=== PATIENT | female | born 1995 | race Caucasian/White ===

== ENCOUNTER → 2016-06-22 | Outpatient (CLI) | payer OTHER ==
[2016-06-22 14:36] LABS: BASO % 0.2 % (0.0-1.0); EOS # 0.1 K/mm3 (0.0-0.50); EOS % 0.6 % (0.0-3.0); LYMPH # 1.8 K/mm3 (1.5-6.5); LYMPH % 19.4 % (24.0-44.0); MEAN CORPUSCULAR HGB CONC 33.1 g/dl (32.0-36.5); MEAN CORPUSCULAR VOLUME 90.7 fl (80.0-96.0); MONO # 0.3 K/mm3 (0.0-0.8); MONO % 3.3 % (0.0-5.0); NEUTROPHILS # 7.2 K/mm3 (1.8-7.7); NEUTROPHILS % 75.5 % (36.0-66.0); RED CELL DISTRIBUTION WIDTH 13.6 % (11.5-14.5); WHITE BLOOD COUNT 9.5 K/mm3 (4.0-10.0)
== END ==
LOC: M LAB 13:23
PROVIDERS: ATTEND Obstetrics & Gynecology
DX: Z34.81 Encounter for supervision of other normal pregnancy, first trimester (principal)

== ENCOUNTER → 2016-07-01 | Outpatient (CLI) | payer OTHER ==
--- NOTE | 2016-07-02 05:19 | REP ---
Clinical: Anatomical evaluation. Comparison: None . Findings: Examination demonstrates a single live intrauterine in cephalic presentation. motion is identified by technologist. Placenta is noted anteriorly and grade zero without evidence for placenta previa or abruption. Amniotic fluid volume is normal. Cervix measures L 4.0 cm in length and appears closed. No evidence for nuchal cord. Gestational age by LMP 19 weeks 1 day with CATHI 11/24/2016 . Gestational age by current measurements 19 weeks 5 days with CATHI 11/20/2016 . FHR equals 150 beats per minute. BPD 4.6 cm 19 weeks 6 days HC 17.1 cm 19 weeks 5 days AC 15.2 cm 20 weeks 3 days FL 3.1 cm 19 weeks 4 days HL 3.1 cm 20 weeks 2 days HC/AC ratio 1.12 Estimated weight 325 grams ( 59th percentile). Anatomical assessment demonstrates normal structures including cranium, choroid plexus, cavum, cerebellum/posterior fossa, facial features, lungs, four-chamber heart/ventricular outflow tracts, diaphragm, stomach, cord insertion/three-vessel cord, kidneys/bladder, spine, and extremities. Impression: Single live intrauterine in cephalic presentation demonstrating appropriate interval growth. Anatomical assessment is complete and normal. Signed by Johnny Rocha MD 07/02/2016 05:11 A
== END ==
LOC: M LRY 13:55
PROVIDERS: ATTEND Obstetrics & Gynecology
DX: Z36 Encounter for antenatal screening of mother (principal); Z3A.19 19 weeks gestation of pregnancy

== ENCOUNTER → 2016-08-17 | Outpatient (CLI) | payer OTHER ==
[2016-08-17 18:33] LABS: BASO % 0.2 % (0.0-1.0); EOS # 0.1 K/mm3 (0.0-0.50); EOS % 0.9 % (0.0-3.0); LARGE UNSTAINED CELL # 0.1 K/mm3 (0.0-0.4); LARGE UNSTAINED CELL % 1.5 % (0.0-4.0); LYMPH # 1.6 K/mm3 (1.5-6.5); LYMPH % 16.5 % (24.0-44.0); MEAN CORPUSCULAR HGB CONC 32.9 g/dl (32.0-36.5); MEAN CORPUSCULAR VOLUME 91.4 fl (80.0-96.0); MONO # 0.4 K/mm3 (0.0-0.8); MONO % 4.2 % (0.0-5.0); NEUTROPHILS # 7.2 K/mm3 (1.8-7.7); NEUTROPHILS % 76.8 % (36.0-66.0); PLATELET COUNT, AUTOMATED 277 k/mm3 (150-450); RED CELL DISTRIBUTION WIDTH 13.2 % (11.5-14.5); WHITE BLOOD COUNT 9.4 K/mm3 (4.0-10.0)
== END ==
LOC: M SMT 14:00
PROVIDERS: ATTEND Advanced Practice Midwife
DX: Z34.83 Encounter for supervision of other normal pregnancy, third trimester (principal)

== ENCOUNTER → 2016-10-29 | Outpatient (REF) | payer OTHER ==
[~2016-10-29] MED LIST: ACET50TA PO; IBUP-1114 PO; PRENTAB9 PO
== END ==
LOC: M LAB REF 16:51
PROVIDERS: ATTEND Advanced Practice Midwife
DX: Z34.83 Encounter for supervision of other normal pregnancy, third trimester (principal)

== ENCOUNTER 2016-11-10 03:43 | Emergency (ER) | payer OTHER ==
[~2016-11-10] VITALS: Ht 177.8 cm; Wt 97.7 kg
[2016-11-10] MEDS ORDERED: NS 1,000 ML IV ONE (04:30)
[2016-11-10 04:42] LABS: BASO % 0.2 % (0.0-1.0); EOS # 0.1 K/mm3 (0.0-0.50); EOS % 1.5 % (0.0-3.0); LARGE UNSTAINED CELL # 0.1 K/mm3 (0.0-0.4); LARGE UNSTAINED CELL % 1.3 % (0.0-4.0); LYMPH # 2.1 K/mm3 (1.5-6.5); LYMPH % 22.6 % (24.0-44.0); MEAN CORPUSCULAR HEMOGLOBIN 26.7 pg (27.0-33.0); MEAN CORPUSCULAR HGB CONC 33.2 g/dl (32.0-36.5); MEAN CORPUSCULAR VOLUME 80.6 fl (80.0-96.0); MONO # 0.5 K/mm3 (0.0-0.8); MONO % 5.8 % (0.0-5.0); NEUTROPHILS # 6.1 K/mm3 (1.8-7.7); NEUTROPHILS % 68.6 % (36.0-66.0); PLATELET COUNT, AUTOMATED 275 k/mm3 (150-450); RED CELL DISTRIBUTION WIDTH 14.5 % (11.5-14.5); WHITE BLOOD COUNT 8.8 K/mm3 (4.0-10.0)
[2016-11-10 04:55] LABS: ANION GAP 11 MEQ/L (8-16); BLOOD UREA NITROGEN 8 MG/DL (7-18); CALCIUM LEVEL 8.6 MG/DL (8.5-10.1); CARBON DIOXIDE LEVEL 20 MEQ/L (21-32); CHLORIDE LEVEL 108 MEQ/L (98-107); CREATININE FOR GFR 0.57 MG/DL (0.55-1.02); GLOMERULAR FILTRATION RATE > 60.0 (>60); GLUCOSE, FASTING 116 MG/DL (70-105); MAGNESIUM LEVEL 1.7 MG/DL (1.8-2.4); POTASSIUM SERUM 3.6 MEQ/L (3.5-5.1); SODIUM LEVEL 139 MEQ/L (136-145)
[2016-11-10] MEDS ORDERED: MAGNESIUM OXIDE 400 MG TAB (MAG-OX) PO ONE (05:15)
[2016-11-10] MEDS ORDERED: MAG SULF 1GM/100ML (MAG RUN) 1 GM in APPROPRIATE DILUENT 1 EA IV ONE (05:15)
[2016-11-10 06:31] VITALS: BP 118/64
--- NOTE | 2016-11-11 09:26 | ECGEPIP ---
Stationary ECG Study 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
== END 2016-11-10 06:48 | disposition home or self-care (01) ==
LOC: M ED 03:43
DX: R00.2 Palpitations (principal); E83.42 Hypomagnesemia
CPT/HCPCS: 80048; 81001; 83735; 85025; 87086; 93005; 96361; 96365; 96366; 99284; J3475

== ENCOUNTER 2016-11-29 03:04 | Inpatient (IN) | payer OTHER ==
[~2016-11-29] VITALS: Ht 177.8 cm; Wt 103.0 kg
[2016-11-29] VITALS (7 sets, daily range): BP systolic 130–140; BP diastolic 69–77
[2016-11-29 03:57] LABS: MEAN CORPUSCULAR HEMOGLOBIN 25.2 pg (27.0-33.0); MEAN CORPUSCULAR HGB CONC 31.4 g/dl (32.0-36.5); MEAN CORPUSCULAR VOLUME 80.3 fl (80.0-96.0); RED CELL DISTRIBUTION WIDTH 15.9 % (11.5-14.5); WHITE BLOOD COUNT 9.8 K/mm3 (4.0-10.0)
[2016-11-29] MEDS ORDERED: PROMETHAZINE INJ 25 MG/ML VIAL (J2550) IV ONE (05:30)
[2016-11-29] MEDS ORDERED: BUTORPHANOL 2 MG/ML INJ (J0595) IV ONE (05:30)
[2016-11-29] MEDS ORDERED: OXYTOCIN 30 UNITS IN 0.9% NaCl 500ML IV BAG (J2590) As Ordered ONE (05:50)
--- NOTE | 2016-11-29 06:56 | HPE ---
DATE OF ADMISSION: 11/29/2016 REASON FOR ADMISSION: Labor. HISTORY OF PRESENT ILLNESS: This patient is a 21-year-old 2 para 1 who presents at 40 weeks 5 days estimated gestational age by last menstrual period confirmed by first trimester ultrasound with complaints of contractions. She reports contractions throughout the day and night that have increased in frequency and intensity. She reports active movement. Denies any vaginal bleeding or leakage of fluid. course has been unremarkable. PAST MEDICAL HISTORY: None. PAST SURGICAL HISTORY: None. PAST OBSTETRICAL HISTORY: She is 2 para 1. She has had one true vaginal delivery proven 6 pounds 5 ounces. MEDICATIONS: - vitamins She has no known drug allergies. SOCIAL HISTORY: She denies any alcohol, tobacco or drug use during her . PHYSICAL EXAMINATION: Vital signs stable. She is afebrile. General appearance: Well appearing, no acute distress. She has category 1 rate tracing with contractions on tocometer approximately every 2-3 minutes. Lungs: Clear to auscultation bilaterally. Cardiovascular: Heart regular rate and rhythm. Abdomen: Gravid. Estimated weight 3900 grams. Cervical exam: She was 5 cm dilated, 90% effaced, -2 station. LABS: labs: Blood type is A positive. Antibody screen negative. Rubella immune. RPR nonreactive. Hepatitis surface antigen negative. HIV negative. Chlamydia and gonorrhea screen negative. She had a normal 1 hour Glucola of 100 and she is Group B Streptococcus (GBS) negative. ASSESSMENT: 1. This patient is a 21-year-old 2, para 1 at 40 weeks 5 days estimated gestational age in active labor. 2. Reassuring status. PLAN: Admit to labor and delivery. CBC, RPR, type and screen. Anticipate spontaneous vaginal delivery. MTDD
[2016-11-29 07:41] LABS: CORD GAS ABE A -5.9; CORD GAS ABE V -5.9; CORD GAS HCO3 A 19.2 MEQ/L; CORD GAS HCO3 V 18.7 MEQ/L; CORD GAS O2 SAT A 56.3 %; CORD GAS O2 SAT V 66.4 %; CORD GAS PCO2 V 34.9 mmHg; CORD GAS PH A 7.333 UNITS; CORD GAS PH V 7.346 UNITS; CORD GAS PO2 V 28.7 mmHg; CORD GAS SBC A 18.7 MEQ/L; CORD GAS SBC V 18.9 MEQ/L; CORD GAS TCO2 A 20.3 MEQ/L; CORD GAS TCO2 V 19.7 MEQ/L
[2016-11-29] MEDS ORDERED: OXYTOCIN DRIP 30 UNITS in APPROPRIATE DILUENT 1 EA IV SCH (07:44)
[2016-11-29] MEDS ORDERED: ACETAMINOPHEN 500 MG TAB PO PRN (07:45)
[2016-11-29] MEDS ORDERED: DOCUSATE SODIUM 100 MG CAP PO PRN (07:45)
[2016-11-29] MEDS ORDERED: DIBUCAINE 1% OINTMENT 30GM TOP PRN (07:45)
[2016-11-29] MEDS ORDERED: MEASLES,MUMPS,RUBELLA VACCINE INJ (MMR-II) (90707) SC SCH (07:45)
[2016-11-29] MEDS ORDERED: METHYLERGONOVINE MALEATE 0.2 MG TAB PO PRN (07:45)
[2016-11-29] MEDS ORDERED: ANUSOL HC CREAM 30GM TOP PRN (07:45)
[2016-11-29] MEDS ORDERED: MOM 30ML SUSPENSION UDC PO PRN (07:45)
[2016-11-29] MEDS ORDERED: RHOGAM 300 MCG (1500 IU) INJ (J2790) IM SCH (07:45)
[2016-11-29] MEDS ORDERED: IBUPROFEN 800 MG TAB PO PRN (07:45)
--- NOTE | 2016-11-29 07:49 | DN ---
DATE: 11/29/2016 TIME OF : 7:15 a.m. GENDER: Male. APGARS: 6 and 8 WEIGHT: 9 pounds 13 ounces or 4450 grams. ESTIMATED BLOOD LOSS: 300 mL LACERATIONS: None. ANESTHESIA: None. COUNTS: 5 Laparotomy sponges accounted for prior to and after delivery. Two sharps removed from the delivery field. DELIVERY NOTE: On 11/29/2016 at 0715, this patient, 21-year-old, 2, now para 2 had a spontaneous vaginal delivery of a live born male , Apgars 6 and 8 weight was 9 pounds, 13 ounces or 4450 grams. Infant was delivered right occiput anterior(GARLAND) over intact peritoneum followed by delivery of left anterior shoulder, right posterior shoulder and corpus. The was handed to the mother. Cord was clapped times two, was cut by the father of the baby under my direction. Cord blood was then obtained as well as cord gases. Placenta was freed and delivered grossly intact. A pre-mixed bag of 500 mL of normal saline with 30 units of Pitocin was then bolused along with uterine massage. The uterus firmed. Inspection of the cervix, vagina and perineum was grossly intact. Hemostatic, Mother and baby are recovering in stable condition. The couple decided to name their son Michelle.
[2016-11-29] MEDS: PRENATAL VITAMINS CHEWABLE TABLET PO SCH (10:05)
[2016-11-30 06:04] VITALS: BP 121/68
[2016-11-30] MEDS: PRENATAL VITAMINS CHEWABLE TABLET PO SCH (07:49)
[2016-11-30] MEDS ORDERED: IBUP-1114 PO (07:59)
[2016-11-30] MEDS ORDERED: ACET50TA PO (07:59)
[2016-11-30] MEDS ORDERED: PRENTAB9 PO (07:59)
== END 2016-11-30 16:20 | disposition home or self-care (01) | DRG 775 ==
LOC: M LDO 03:04 → M LDI 03:27 → M OBS 11:43
PROVIDERS: ADMIT Obstetrics & Gynecology; ATTEND Obstetrics & Gynecology
PROC: 10E0XZZ Delivery of Products of Conception, External Approach (ICD-10-PCS; principal; 2016-11-29)
DX: O48.0 Post-term pregnancy (principal); Z37.0 Single live birth; Z3A.40 40 weeks gestation of pregnancy